=== PATIENT | female | born 1995 | race Caucasian/White ===

== ENCOUNTER 2021-10-19 22:26 | Emergency (ER) | payer OTHER ==
[~2021-10-19] VITALS: Ht 160 cm; Wt 74.5 kg
[2021-10-20] MEDS ORDERED: KETOROLAC 30 MG/ML VIAL IM ONE (01:10)
[2021-10-20] MEDS ORDERED: ACETAMINOPHEN 325 MG TAB PO ONE (01:10)
[2021-10-20] MEDS ORDERED: HYDROcodone/APAP 5/325 MG 1 TAB TAB PO ONE (01:10)
[2021-10-20 01:11] VITALS: BP 124/76
--- NOTE | 2021-10-20 01:11 | NUR ---
SEE FULL ASSESSMENT
[2021-10-20] MEDS ORDERED: LIDOCAINE/EPI 1% 1:100000 20 ML VIAL INJ ONE (01:25)
[2021-10-20] MEDS ORDERED: AMOX-1000 PO (02:31)
[2021-10-20 02:39] VITALS: BP 124/76
== END 2021-10-20 02:39 | disposition home or self-care (01) ==
LOC: MED 22:26
DX: S61.451A Open bite of right hand, initial encounter (principal); Z79.899 Other long term (current) drug therapy; W54.0XXA Bitten by dog, initial encounter; Y93.89 Activity, other specified; Y92.89 Other specified places as the place of occurrence of the external cause; Y99.8 Other external cause status
CPT/HCPCS: 73110; 73130; 96372; 99284; J1885; J2001